=== PATIENT | male | born 1995 | race American Indian/Alaskan Native ===

== ENCOUNTER 2021-01-03 18:38 | Emergency (ER) | payer SELFPAY ==
--- NOTE | 2021-01-03 18:55 | EDM.PDOC ---
ED HPI GENERAL MEDICAL PROBLEM - General Chief Complaint: Trauma Stated Complaint: [facility] Time Seen by Provider: 01/03/21 18:50 Source of Information: Reports: Patient, EMS History Limitations: Reports: No Limitations - History of Present Illness INITIAL COMMENTS - FREE TEXT/NARRATIVE: 25-year-old male of [place] ancestry presents to the ED per [facility]. At approximately 1620 hrs. today while riding [employer] at a local rodeo he was bucked off the horse and then trampled by the horse and kicked by the horse. He suffered blunt abdominal trauma to the left hemiabdomen with multiple large abrasions. Contusion to his face with split lower lip and contusion to his right upper arm and shoulder area. He denies any loss of consciousness. Denies any headache. He has full range of motion of his cervical spine. He was ambulatory on scene. Denies any back pain. States his ribs did not really hurt much on deep inspiration. However on palpation he has significant tenderness to palpation lateral ribs on the left side. Vital signs have been normal according to paramedics who brought him to the emergency department. Onset: Today, Sudden Onset Date: 01/03/21 Onset Time: 16:20 Duration: Hour(s):, Constant Location: Reports: Face (Kicked in the face by the horse with split lower lip. No dental injuries), Chest (Pain left lateral chest wall on exam), Abdomen (Struck in the lower anterior thorax and upper abdomen when trampled by the horse with probably 2 feet.), Upper Extremity, Right Quality: Reports: Ache (Right upper arm is aching and throbbing a bit.), Other (Multiple abrasions to the left hemiabdomen.) Severity: Moderate Improves with: Reports: None Worsens with: Reports: Other (Deep breathing perhaps make his left lower ribs and upper abdomen on the left side hurt a bit.) Context: Reports: Trauma (Blunt abdominal and chest wall trauma from being trampled by a horse. He was [place] riding in a rodeo and bucked off and trampled by the horse and then kicked by the horse.) Associated Symptoms: Reports: Chest Pain. Denies: Confusion, Cough, cough w sputum (Left lateral chest pain on exam.), Diaphoresis, Fever/Chills, Headaches, Loss of Appetite, Malaise, Nausea/Vomiting, Rash, Seizure, Shortness of Breath, Syncope, Weakness Treatments [employer]ING [employer]IMATOR: Reports: Acetaminophen Left Chest Pain Score (Numeric/FACES): 6 - Related Data Allergies Allergy/AdvReac Type Severity Reaction Status Date / Time No Known Allergies Allergy Verified 01/03/21 18:50 Home Meds: Home Meds . [No Known Home Meds] 01/03/21 [History] Social & Family History - Living Situation & Occupation Living situation: Reports: Single Review of Systems - Review of Systems Review Of Systems: See Below Constitutional: Reports: No Symptoms Eyes: Reports: No Symptoms Ears: Reports: No Symptoms Nose: Reports: No Symptoms Mouth/Throat: Reports: No Symptoms, Other (Swollen lower lip with a split lip in the midline.) Respiratory: Denies: Shortness of Breath, Wheezing, Pleuritic Chest Pain Cardiovascular: Reports: Chest Pain (Due to injury sustained today. Left lateral chest pain on deep inspiration mild.) GI/Abdominal: Reports: Abdominal Pain Genitourinary: Reports: No Symptoms Musculoskeletal: Reports: Arm Pain (Right upper extremity pain from today's injuries.) Skin: Reports: No Symptoms Neurological: Reports: No Symptoms Psychiatric: Reports: No Symptoms ED EXAM, GENERAL - Physical Exam Exam: See Below Exam Limited By: No Limitations General Appearance: Alert, WD/WN, Mild Distress, Other (Temperature is 37.0. Heart rate 80 and sinus respiratory to 16 with O2 sats of 98% on room air. BP 142/62.) Eye Exam: Bilateral Eye: Normal Inspection, PERRL Ears: Normal External Exam Nose: Normal Inspection, Normal Mucosa Throat/Mouth: Normal Inspection, Normal Oropharynx, Other (Patient has a split lower lip in the midline that may require a couple of sutures. No dental injury no tongue injury no mandibular injury.). No: Normal Lips Head: Atraumatic, Normocephalic, Other (No palpable deformities of the head identified. No facial swelling other than his lower lip.) Neck: Normal Inspection, Supple, Non-Tender, Full Range of Motion, Other (Full unrestricted range of motion of cervical spine.). No: Lymphadenopathy (L), Lymphadenopathy (R) Respiratory/Chest: No Respiratory Distress, Lungs Clear, Normal Breath Sounds, No Accessory Muscle Use, Other (He did not feel any significant pain in his ribs on deep inspiration but on palpation of the left lateral chest wall he was tender from ribs #6-12 mid axillary line. No subcutaneous emphysema or crepitus appreciated on palpation) Cardiovascular: Normal Peripheral Pulses, Regular Rate, Rhythm, No Edema, No Gallop, No Murmur, No Rub Peripheral Pulses: 3+: Carotid (L), Carotid (R), Posterior Tibial (L), Posterior Tibial (R), Dorsalis Pedis (L), Dorsalis Pedis (R) GI/Abdominal: Normal Bowel Sounds, Soft, Guarding ( identified mild guarding l eft upper quadrant of the abdomen where the), Tender (Tender left upper quadrant of the abdomen. Patient has multiple abrasions that cover three quarters of his left hemiabdomen to the midline from the anterior axillary line also involved is his lower anterior chest wall where he was trampled by the horse. He was rolling at the time.), Other (No peritoneal signs). No: Rigid, Rebound ( abrasions are the worst on his abdominal wall.) (Male) Exam: No Hernia Back Exam: Normal Inspection, Full Range of Motion, Other (No tenderness on palpation of the spinous processes throughout his lumbar and thoracic spine. There is a few minimal abrasions mid back where he appears like he rolled on some alonso debris.). No: CVA Tenderness (L), CVA Tenderness (R) Extremities: Other (Patient has a hematoma and some swelling of his right upper extremity from mid humerus to shoulder. He has good supination pronation at the elbow and good ulnar and radial pulses. He was able to raise the arm above his head with some tenderness appreciated. He was able to lift his left arm above ) Neurological: Alert, Oriented, CN II-XII Intact, Normal Cognition Psychiatric: Normal Affect, Normal Mood Skin Exam: Warm, Dry, Other (Large abrasions across the 75% of the left hemiabdominal wall from being raped by hooves from a horse. He was trampled by a horse that he was riding in a rodeo during saddle [facility] contest. He was kicked in the right upper extremity and has a hematoma to his right arm and shoulder area. Kicked in ) Course - Vital Signs Last Recorded V/S: Last Vital Signs Temp 36.9 C 01/03/21 19:25 Pulse 89 01/03/21 19:25 Resp 20 01/03/21 19:25 BP 129/85 01/03/21 19:25 Pulse Ox 100 01/03/21 19:25 - Orders/Labs/Meds Orders: Active Orders 24 hr Category Date Time Status TYPE AND SCREEN [BBK] Stat Lab 01/03/21 19:03 Received URINALYSIS W/MICROSCOPIC [UA W/MICROSCOPIC] [URIN] Stat Lab 01/03/21 19:51 Ordered Sodium Chloride 0.9% [Normal Saline] 1,000 ml Med 01/03/21 19:00 Active IV ASDIRECTED Sodium Chloride 0.9% [Saline Flush] Med 01/03/21 19:03 Active 10 ml FLUSH ONETIME PRN Medication Orders Sodium Chloride (Normal Saline) 1,000 mls @ 150 mls/hr IV ASDIRECTED DONNY Last Admin: 01/03/21 19:03 Dose: 150 mls/hr Documented by: SARAH Sodium Chloride (Sodium Chloride 0.9% 10 Ml Syringe) 10 ml FLUSH ONETIME PRN PRN Reason: IV FLUSH Last Admin: 01/03/21 19:21 Dose: 10 ml Documented by: LOLITA Labs: Laboratory Tests 01/03/21 01/03/21 01/03/21 Range/Units 19:03 19:03 19:03 WBC 11.67 H (4.23-9.07) K/mm3 RBC 4.62 L (4.63-6.08) M/mm3 Hgb 13.2 L (13.7-17.5) gm/dl Hct 39.3 L (40.1-51.0) % MCV 85.1 (79.0-92.2) fl MCH 28.6 (25.7-32.2) pg MCHC 33.6 (32.2-35.5) g/dl RDW Std Deviation 40.8 (35.1-43.9) fL Plt Count 288 (163-337) K/mm3 MPV 10.4 (9.4-12.3) fl Neut % (Auto) 81.8 H (34.0-67.9) % Lymph % (Auto) 10.5 L (21.8-53.1) % [place] % (Auto) 6.9 (5.3-12.2) % Eos % (Auto) 0.2 L (0.8-7.0) Baso % (Auto) 0.2 (0.1-1.2) % Neut # (Auto) 9.55 H (1.78-5.38) K/mm3 Lymph # (Auto) 1.23 L (1.32-3.57) K/mm3 [place] # (Auto) 0.80 (0.30-0.82) K/mm3 Eos # (Auto) 0.02 L (0.04-0.54) K/mm3 Baso # (Auto) 0.02 (0.01-0.08) K/mm3 PT 10.7 (9.7-12.0) SECONDS INR 1.00 APTT 22.8 (21.7-31.4) SECONDS Sodium 141 (136-145) mEq/L Potassium 3.3 L (3.5-5.1) mEq/L Chloride 105 (98-107) mEq/L Carbon Dioxide 26 (21-32) mEq/L Anion Gap 13.3 (5-15) BUN 11 (7-18) mg/dL Creatinine 1.1 (0.7-1.3) mg/dL Est Cr Clr Drug Dosing 106.92 mL/min Estimated GFR (MDRD) > 60 (>60) mL/min BUN/Creatinine Ratio 10.0 L (14-18) Glucose 107 H (70-99) mg/dL Calcium 8.5 (8.5-10.1) mg/dL Total Bilirubin 0.7 (0.2-1.0) mg/dL AST 30 (15-37) U/L ALT 38 (16-63) U/L Alkaline Phosphatase 54 (46-116) U/L Total Protein 7.7 (6.4-8.2) g/dl Albumin 4.1 (3.4-5.0) g/dl Globulin 3.6 gm/dL Albumin/Globulin Ratio 1.1 (1-2) Lipase (73-393) U/L // Range/Units 19:03 WBC (4.23-9.07) K/mm3 RBC (4.63-6.08) M/mm3 Hgb (13.7-17.5) gm/dl Hct (40.1-51.0) % MCV (79.0-92.2) fl MCH (25.7-32.2) pg MCHC (32.2-35.5) g/dl RDW Std Deviation (35.1-43.9) fL Plt Count (163-337) K/mm3 MPV (9.4-12.3) fl Neut % (Auto) (34.0-67.9) % Lymph % (Auto) (21.8-53.1) % [place] % (Auto) (5.3-12.2) % Eos % (Auto) (0.8-7.0) Baso % (Auto) (0.1-1.2) % Neut # (Auto) (1.78-5.38) K/mm3 Lymph # (Auto) (1.32-3.57) K/mm3 [place] # (Auto) (0.30-0.82) K/mm3 Eos # (Auto) (0.04-0.54) K/mm3 Baso # (Auto) (0.01-0.08) K/mm3 PT (9.7-12.0) SECONDS INR APTT (21.7-31.4) SECONDS Sodium (136-145) mEq/L Potassium (3.5-5.1) mEq/L Chloride (98-107) mEq/L Carbon Dioxide (21-32) mEq/L Anion Gap (5-15) BUN (7-18) mg/dL Creatinine (0.7-1.3) mg/dL Est Cr Clr Drug Dosing mL/min Estimated GFR (MDRD) (>60) mL/min BUN/Creatinine Ratio (14-18) Glucose (70-99) mg/dL Calcium (8.5-10.1) mg/dL Total Bilirubin (0.2-1.0) mg/dL AST (15-37) U/L ALT (16-63) U/L Alkaline Phosphatase (46-116) U/L Total Protein (6.4-8.2) g/dl Albumin (3.4-5.0) g/dl Globulin gm/dL Albumin/Globulin Ratio (1-2) Lipase 507 H (73-393) U/L Meds: Medications Generic Name Dose Route Start Last Admin Trade Name Freq PRN Reason Stop Dose Admin Sodium Chloride 1,000 mls @ 150 mls/hr 01/03/21 19:00 01/03/21 19:03 Normal Saline IV 150 mls/hr ASDIRECTED DONNY Administration Sodium Chloride 10 ml 01/03/21 19:03 01/03/21 19:21 Sodium Chloride 0.9% 10 Ml Syringe FLUSH 10 ml ONETIME PRN Administration IV FLUSH Discontinued Medications Generic Name Dose Route Start Last Admin Trade Name Freq PRN Reason Stop Dose Admin Ibuprofen 600 mg 01/03/21 20:08 Ibuprofen 600 Mg Tab PO 01/03/21 20:09 ONETIME ONE Iopamidol 50 ml 01/03/21 19:03 01/03/21 19:21 Iopamidol 612 Mg/Ml 50 Ml Sdv IVPUSH 01/03/21 19:04 50 ml ONETIME ONE Administration Iopamidol 100 ml 01/03/21 19:03 01/03/21 19:21 Iopamidol 612 Mg/Ml 100 Ml Bottle IVPUSH 01/03/21 19:04 100 ml ONETIME ONE Administration Ondansetron HCl 4 mg 01/03/21 20:08 Ondansetron 4 Mg Tab.Dis PO 01/03/21 20:09 ONETIME ONE Oxycodone/Acetaminophen 2 tab 01/03/21 20:08 Acetaminophen/Oxycodone 325-5 Mg Tab PO 01/03/21 20:09 ONETIME ONE - Radiology Interpretation Free Text/Narrative:: 25-year-old male of [place] presents to the ED per [facility] . He was injured during a rodeo event in [place]. He was riding [place] [facility] when he was bucked off the horse and the horse trampled him I believe with both feet striking him in the left lower chest and left hemiabdomen. Patient has multiple deep abrasions from the mid axillary line to the midline of the abdomen involving 75% of his upper abdomen and lower chest wall. Does have some tenderness to palpation left lateral ribs in the mid axillary line. Mild tenderness on palpation of the left upper quadrant of the abdomen. He still has active bowel sounds. Stable vital signs and injuries occurred over 2 hours prior to arrival in the ED. He was walking on scene. He was kicked in the right upper extremity with hematoma formation in the biceps and musculature of the right upper arm. Full pronation supination at the elbow and he is able to lift the arm above his head. He also was kicked in the face by the horse with a glancing blow with a split lower lip in the midline that may require sutures. There is no evidence of any mid facial bony injuries. No closed head injury occurred no loss of consciousness occurred. He has full range of motion of his cervical spine thoracic and lumbar spine also were negative for any obvious injuries. Plan IV normal saline at 100 mils per hour. Patient was kind of anxious not to have IV started as he is afraid of needles. He will require CT of the chest abdomen and pelvis due to the nature of his injuries with IV contrast. X-ray of his right humerus will be obtained but I clinically do not believe there is going to be a fracture here. Routine labs to be collected and type and screen. - Re-Assessments/Exams Free Text/Narrative Re-Assessment/Exam: 01/03/21 19:36 CT scan of the chest abdomen and pelvis has been performed with IV contrast only. Heart and mediastinum are normal. There is no pneumothorax or hemothorax. Small amount of air in the distal esophagus appreciated. Has fractures of the left eighth and ninth ribs without any subcutaneous emphysema in the lateral left chest. CT scan of the abdomen and pelvis reveals liver to be homogeneous without any intraductal dilatation. Gallbladder is poorly visualized but contains no obvious calcified gallstones. Pancreas is normal. Stomach is normal. Spleen is normal. Kidneys are normal and take up contrast equally and ureters are normal down to urinary bladder. Delayed films reveal the urinary bladder to be filled normally. There is a fair amount of stool throughout the colon but no small bowel or large bowel injuries identified. The omentum appears to be normal as well. I had a look at his lip once again and it is split in the midline and could benefit from a couple of Vicryl sutures but the patient is keen not to have sutures unless absolutely necessary. This will heal without sutures leaving minimal scarring. He has full range of motion of his upper extremity even though there is swelling and hematoma in the right biceps distribution. No labs are yet available on this patient. He has a friend who is arrived will be able to drive him back to [place]. . 01/03/21 19:49 Labs reveal a mildly elevated white count at 11.67. Differential shows 81.8% neutrophils. Hemoglobin is 13.2 with hematocrit of 39.3. Platelet count 288,000. PT is 10.7 with an INR of 1.00. PTT is 22.8. 01/03/21 20:00 Chemistry shows a sodium of 141 potassium slightly low at 3.3. Chloride 105 with a bicarb of 26. Anion gap is 13.3. BUN is 11 with a creatinine of 1.1 and a GFR greater than 60. Glucose is 107. Calcium is 8.5. Liver function is normal. Total protein is 7.7 with an albumin fraction of 4.1. Lipase is mildly elevated at 507. I reexamined the patient he does have active bowel sounds and still has no peritoneal signs. He is from [place] and the plan will be to send him home with medication from the [employer] i.e. Percocet 5/325 mg tablets for pain relief. Patient advised that he does have mild elevated lipase and may go on to develop increased abdominal pain over the next 12 to 24 hours and if this occurs he is to be rechecked for development of pancreatitis. Advise no alcohol for at least 3 to 4 days. Departure - Departure Time of Disposition: 20:11 Disposition: Home, Self-Care 01 Condition: Fair Clinical Impression: Serum lipase elevation Blunt trauma of abdominal wall Qualifiers: Encounter type: initial encounter Qualified Code(s): S39.81XA - Other specified injuries of abdomen, initial encounter Blunt chest trauma Qualifiers: Encounter type: initial encounter Qualified Code(s): S29.8XXA - Other specified injuries of thorax, initial encounter Closed rib fracture Qualifiers: Encounter type: initial encounter Rib fracture type: multiple ribs Laterality: left Qualified Code(s): S22.42XA - Multiple fractures of ribs, left side, initial encounter for closed fracture Contusion of right upper arm Qualifiers: Encounter type: initial encounter Qualified Code(s): S40.021A - Contusion of right upper arm, initial encounter Contusion of vermilion border of lower lip Qualifiers: Encounter type: initial encounter Qualified Code(s): S00.531A - Contusion of lip, initial encounter Abdominal wall abrasion Qualifiers: Encounter type: initial encounter Qualified Code(s): S30.811A - Abrasion of abdominal wall, initial encounter Contusion of abdominal wall Qualifiers: Encounter type: initial encounter Qualified Code(s): S30.1XXA - Contusion of abdominal wall, initial encounter Fracture of rib Qualifiers: Rib fracture type: multiple ribs Fracture type: closed Laterality: left - Discharge Information *PRESCRIPTION DRUG MONITORING PROGRAM REVIEWED*: Not Applicable *COPY OF PRESCRIPTION DRUG MONITORING REPORT IN PATIENT KARSTEN: Not Applicable Instructions: Blunt Abdominal Trauma, Rib Fracture, [id number] Referrals: PCP,None [Primary Care Provider] - Forms: ED Department Discharge Additional Instructions: Evaluation in the emergency room today after being injured after being bucked off a horse well performing saddle bron[place] riding at a local rodeo. You were trampled by the horse suffering multiple abrasions to the left lower chest wall and 75% of the left abdomen. Blunt force trauma by being kicked in the left upper extremity and arm without evidence of bony injury but soft tissue injury to the muscles. Glancing blow to the midface with split lower lip with decision made not to suture at this time. The lip will heal on its own with minimal scarring. CT scan of the chest abdomen and pelvis was performed and identifies 2 broken ribs on the left side #8 #9 are broken on the lateral chest wall. There is minimal displacement of the fractures and they will heal on their own over the next 6 weeks. There were no intra-abdominal injuries identified to the spleen, kidney, pancreas, stomach or large bowel or small bowel. Liver was also normal. Expect to be stiff and sore for the next 3 days and then gradually improved. Suggest cleansing the abrasions on the abdominal wall daily with shower and soap. Then apply topical antibiotic such as bacitracin or Polysporin once daily usually at bedtime and wear clean T-shirt overnight until the wounds heal. May use Motrin 600 mg every 6 hours to reduce pain and inflammation from fractured ribs and contusion to right arm. May fill prescription for Percocet tabs 5/325 mg strength 1-2 tabs every 4-6 hours necessary for the next 2 to 3 days for fractured rib pain. Activity as tolerated. Rib fractures are usually fairly painful for the first 10 days and gradually improve and after 3 weeks you can tolerate most activities however I would not advise return to [employer] events until ribs are well-healed which will be at least 6 weeks. Lab tests reveal a mild elevation of your serum lipase to be 507 with upper limits of normal in our lab to be 396. This means that you have suffered a mild contusion to your pancreas and therefore short avoid all alcohol products for the next 3 to 4 days. Suggest plenty of fluids like Gatorade or Powerade and minimizing food for the next 12 hours. If abdominal pain increases or you develop associated nausea and vomiting you need to be seen in follow-up by a physician. You may use Motrin 600 mg every 6 hours to reduce pain and inflammation in your rib cage. May use Percocet tabs 5/325 mg strength 1 or 2 every 4-6 hours necessary for pain relief over the next 3 to 4 days as well. Follow-up with personal care physician when she get back home if you develop any further problems Sepsis Event Note (ED) - Focused Exam Vital Signs: Vital Signs Temp Pulse Resp BP Pulse Ox 01/03/21 19:25 36.9 C 89 20 129/85 100 01/03/21 18:44 37.0 C 80 16 142/62 H 98 - My Orders Last 24 Hours: My Active Orders 01/03/21 19:00 Sodium Chloride 0.9% [Normal Saline] 1,000 ml IV ASDIRECTED 01/03/21 19:03 TYPE AND SCREEN [BBK] Stat Sodium Chloride 0.9% [Saline Flush] 10 ml FLUSH ONETIME PRN 01/03/21 19:51 URINALYSIS W/MICROSCOPIC [UA W/MICROSCOPIC] [URIN] Stat - Assessment/Plan Last 24 Hours: My Active Orders 01/03/21 19:00 Sodium Chloride 0.9% [Normal Saline] 1,000 ml IV ASDIRECTED 01/03/21 19:03 TYPE AND SCREEN [BBK] Stat Sodium Chloride 0.9% [Saline Flush] 10 ml FLUSH ONETIME PRN 01/03/21 19:51 URINALYSIS W/MICROSCOPIC [UA W/MICROSCOPIC] [URIN] Stat
[2021-01-03] MEDS ORDERED: Sodium Chloride 0.9% 1,000 ML IV SCH (19:00)
[2021-01-03] MEDS ORDERED: Sodium Chloride 0.9% 10 ML Syringe FLUSH PRN (19:03)
[2021-01-03] MEDS ORDERED: Iopamidol 612 MG/ML 50 ML SDV IVPUSH ONE (19:03)
[2021-01-03] MEDS ORDERED: Iopamidol 612 MG/ML 100 ML Bottle IVPUSH ONE (19:03)
--- NOTE | 2021-01-03 19:54 | CT ---
CT chest Technique: Multiple axial sections through the chest were obtained. Reconstructed coronal and sagittal images were obtained. Intravenous contrast was utilized. Comparison: No prior chest imaging is available. Findings: Thoracic aorta shows no aneurysm. Slight area of increased density is noted within the superior mediastinum compatible with minimal residual thymus tissue. No mediastinal adenopathy is seen. No axillary adenopathy is seen. No pericardial thickening is appreciated. Lungs are clear with no acute parenchymal change. No pleural effusions are seen. No pneumothorax is appreciated. Posterolateral left eighth rib shows evidence of a mildly displaced fracture by about one shaft width. Minimally displaced fracture is noted within the posterolateral left ninth rib. No additional rib abnormality is appreciated. No thoracic spine abnormality is appreciated. Impression: 1. Two rib fractures within the left chest involving the eighth and ninth ribs. Eighth rib fracture is mildly displaced by one shaft width. 2. No additional abnormality is appreciated on CT study of the chest. Diagnostic code #3 CT abdomen and pelvis Technique: Multiple axial sections were obtained from above the dome of the diaphragm inferiorly through the pubic symphysis. Intravenous contrast was utilized. No oral contrast has been given. Reconstructed coronal and sagittal images were also obtained. Findings: Liver contains no focal parenchymal abnormality. Gallbladder contains no calcified gallstones. Spleen appears normal in size. Small amount of accessory splenic tissue is noted posterior to the spleen. Pancreas shows no focal abnormality. Kidneys show symmetric contrast enhancement without hydronephrosis or mass. No discrete adrenal abnormalities are seen. Slight inflammatory change is seen around the proximal left ureter slightly past the UPJ. This most likely represents minimal inflammatory change. There is no abnormal evidence of obstruction of the left ureter, contrast is seen within the bladder. Abdominal aorta shows no aneurysm. No retroperitoneal adenopathy or mesenteric abnormalities are seen. No pelvic mass or adenopathy is identified. Bone window settings were reviewed which show no acute abnormality within the thoracic spine. No definite acute osseous abnormality is seen within the visualized pelvis. Impression: 1. Mild inflammatory change around the left ureter close to the UPJ. There are no findings of ureteral obstruction with contrast being seen within the ureter and bladder. 2. Other portions of the CT exam of the abdomen and pelvis appear unremarkable. Diagnostic code #3
[2021-01-03] MEDS ORDERED: Acetaminophen/oxyCODONE 325-5 MG Tab PO ONE (20:08)
[2021-01-03] MEDS ORDERED: Ondansetron 4 MG Tab.DIS PO ONE (20:08)
[2021-01-03] MEDS ORDERED: Ibuprofen 600 MG Tab PO ONE (20:08)
== END 2021-01-03 20:25 | disposition home or self-care (01) ==
LOC: JD.ED 18:38
DX: S22.42XA Multiple fractures of ribs, left side, initial encounter for closed fracture (principal); S30.1XXA Contusion of abdominal wall, initial encounter; S40.021A Contusion of right upper arm, initial encounter; S00.531A Contusion of lip, initial encounter; R74.8 Abnormal levels of other serum enzymes; Y04.2XXA Assault by strike against or bumped into by another person, initial encounter
CPT/HCPCS: 36415; 71260; 71260-26; 74177; 74177-26; 80053; 81001; 83690; 85025; 85610; 85730; 86850; 86900; 86901; 99284; 99284-25; A9270-GY; J7030; Q9967